=== PATIENT | male | born 1995 | race Caucasian/White ===

== ENCOUNTER 2017-12-01 13:10 | Emergency (ER) | payer BC ==
[2017-12-01] MEDS ORDERED: Lidocaine 1% 20 ML MDV ONE (13:32)
[2017-12-01] MEDS ORDERED: Diphtheria,Pertussis(Acell),Tetanus Vaccine 0.5 ML SDV IM ONE (13:43)
[2017-12-01] MEDS ORDERED: Lidocaine 1% 10 ML MDV INJECT ONE (13:43)
--- NOTE | 2017-12-01 13:55 | EDM.PDOC ---
ED HPI GENERAL MEDICAL PROBLEM - General Chief Complaint: Upper Extremity Injury/Pain Stated Complaint: LEFT THUMB INJURY Time Seen by Provider: 12/01/17 13:30 Source of Information: Reports: Patient History Limitations: Reports: No Limitations - History of Present Illness INITIAL COMMENTS - FREE TEXT/NARRATIVE: 22 YO WM presents to ER with foreign body in left thumb. Pt reports he was sliding his hand across a railing when he felt a piece of wood go into his thumb. Pt reports it was a large splinter. Pt states injury occurred approximately 3 hours ago. Pt denies any other injury. Pt reports last tetanus was 10 years ago. Onset: Today Duration: Hour(s): (3) Location: Reports: Upper Extremity, Left Quality: Reports: Ache Severity: Mild Improves with: Reports: None Worsens with: Reports: None Associated Symptoms: Reports: No Other Symptoms Left 1-Thumb Pain Score (Numeric/FACES): 2 - Related Data Allergies Allergy/AdvReac Type Severity Reaction Status Date / Time Sulfa (Sulfonamide Allergy Cannot Verified 12/01/17 13:18 Antibiotics) Remember Home Meds: Home Meds Amoxicillin/Potassium Clav [Augmentin 875-125 Tablet] 1 each PO BID #20 tablet 12/01/17 [Rx] Past Medical History - Past Surgical History GI Surgical History: Reports: Appendectomy Social & Family History - Tobacco Use Smoking Status *Q: Never Smoker - Alcohol Use Days Per Week of Alcohol Use: 1 Number of Drinks Per Day: 2 Total Drinks Per Week: 2 - Recreational Drug Use Recreational Drug Use: No Review of Systems - Review of Systems Review Of Systems: See Below Constitutional: Reports: No Symptoms Eyes: Reports: No Symptoms Ears: Reports: No Symptoms Nose: Reports: No Symptoms Mouth/Throat: Reports: No Symptoms Respiratory: Reports: No Symptoms Cardiovascular: Reports: No Symptoms GI/Abdominal: Reports: No Symptoms Genitourinary: Reports: No Symptoms Musculoskeletal: Reports: No Symptoms Skin: Reports: Other (foreign body in left thumb) Neurological: Reports: No Symptoms Psychiatric: Reports: No Symptoms ED EXAM, GENERAL - Physical Exam Exam: See Below Exam Limited By: No Limitations General Appearance: Alert, WD/WN, No Apparent Distress Head: Atraumatic, Normocephalic Neck: Normal Inspection, Supple, Non-Tender, Full Range of Motion Respiratory/Chest: No Respiratory Distress, Lungs Clear, Normal Breath Sounds, No Accessory Muscle Use, Chest Non-Tender Cardiovascular: Normal Peripheral Pulses, Regular Rate, Rhythm, No Edema, No Gallop, No JVD, No Murmur, No Rub GI/Abdominal: Normal Bowel Sounds, Soft, Non-Tender, No Organomegaly, No Distention, No Abnormal Bruit, No Mass Back Exam: Normal Inspection, Full Range of Motion, NT Extremities: Other (foreign body in left thumb) Neurological: Alert, Oriented, CN II-XII Intact, Normal Cognition, Normal Gait, Normal Reflexes, No Motor/Sensory Deficits Psychiatric: Normal Affect, Normal Mood Skin Exam: Warm, Dry, Intact, Normal Color, No Rash Lymphatic: No Adenopathy ED TRAUMA EXTREMITY PROCEDURES - Foreign Body Removal Indication:: large splinter in left thumb Consent Obtained: Patient Performing Doctor:: Ovidio Montes Anesthesia Type: Local Findings:: small incision with #10 blade and use of hemostats for complete removal of large splinter. No complications Complications:: No Course - Vital Signs Last Recorded V/S: Last Vital Signs Temp 36.7 C 12/01/17 13:20 Pulse 92 12/01/17 13:20 Resp 18 12/01/17 13:20 BP 149/82 H 12/01/17 13:20 Pulse Ox 99 12/01/17 13:20 - Orders/Labs/Meds Orders: Active Orders 24 hr Category Date Time Status Vaccines to be Administered [RC] PER UNIT ROUTINE Care 12/01/17 13:44 Active Meds: Medications Discontinued Medications Generic Name Dose Route Start Last Admin Trade Name Freq PRN Reason Stop Dose Admin Diphtheria/Tetanus/Acell Pertussis 0.5 ml 12/01/17 13:43 12/01/17 13:45 Adacel IM 12/01/17 13:44 0.5 ml .ONCE ONE Administration Lidocaine HCl Confirm 12/01/17 13:32 Xylocaine 1% Administered 12/01/17 13:33 Dose 20 ml .ROUTE .STK-MED ONE Lidocaine HCl 10 ml 12/01/17 13:43 12/01/17 13:47 Xylocaine 1% INJECT 12/01/17 13:44 2 ml ONETIME ONE Administration Departure - Departure Time of Disposition: 13:56 Disposition: Home, Self-Care 01 Condition: Good Clinical Impression: Foreign body (FB) in soft tissue - Discharge Information Prescriptions: Amoxicillin/Potassium Clav [Augmentin 825-125 Tablet] 1 each PO BID #20 tablet Instructions: Sliver Removal, Care After Referrals: PCP,Unknown [Primary Care Provider] - - My Orders Last 24 Hours: My Active Orders 12/01/17 13:44 Vaccines to be Administered [RC] PER UNIT ROUTINE - Assessment/Plan Last 24 Hours: My Active Orders 12/01/17 13:44 Vaccines to be Administered [RC] PER UNIT ROUTINE Assessment:: 1. foreign body removal from left thumb Plan: 1. wound care instructions 2. Augmentin 875mg PO BID x 10 days 3. tetanus given 4. discharge home 5. return for worsening symptoms
== END 2017-12-01 14:04 | disposition home or self-care (01) ==
LOC: KA.ED 13:10
DX: S60.351A Superficial foreign body of right thumb, initial encounter (principal); Z23 Encounter for immunization; Z88.2 Allergy status to sulfonamides; Z90.49 Acquired absence of other specified parts of digestive tract; W45.8XXA Other foreign body or object entering through skin, initial encounter
CPT/HCPCS: 10120; 90471; 90715; 99283; A9270-GY

== ENCOUNTER 2018-03-22 19:11 | Emergency (ER) | payer BC ==
[2018-03-22] MEDS ORDERED: Cephalexin 250 MG Cap ONE (19:44)
--- NOTE | 2018-03-22 19:44 | EDM.PDOC ---
ED HPI GENERAL MEDICAL PROBLEM - General Chief Complaint: Bite:Animal, Insect Stated Complaint: INFECTED BUG BITE Time Seen by Provider: 03/22/18 19:20 Source of Information: Reports: Patient History Limitations: Reports: No Limitations - History of Present Illness INITIAL COMMENTS - FREE TEXT/NARRATIVE: 22 YO WM presents to ER complaining of left ankle redness with pain and swelling x 1 day. Pt reports he thinks it started after a bug bite to the same area. Pt denies any fever/chills, no nausea/vomiting, no history of gout or injury. Onset Date: 03/21/18 Duration: Day(s): (2) Location: Reports: Lower Extremity, Left Quality: Reports: Ache Severity: Mild Improves with: Reports: None Worsens with: Reports: None Associated Symptoms: Reports: No Other Symptoms. 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 - Related Data Allergies Allergy/AdvReac Type Severity Reaction Status Date / Time Sulfa (Sulfonamide Allergy Cannot Verified 03/22/18 19:20 Antibiotics) Remember Home Meds: Home Meds Cephalexin [Keflex] 500 mg PO Q6H #40 capsule 03/22/18 [Rx] Past Medical History - Past Surgical History GI Surgical History: Reports: Appendectomy Social & Family History - Tobacco Use Smoking Status *Q: Never Smoker Second Hand Smoke Exposure: No - Caffeine Use Caffeine Use: Reports: Coffee, Soda - Recreational Drug Use Recreational Drug Use: No ED ROS GENERAL - Review of Systems Review Of Systems: See Below Constitutional: Reports: No Symptoms HEENT: Reports: No Symptoms Respiratory: Reports: No Symptoms Cardiovascular: Reports: No Symptoms Endocrine: Reports: No Symptoms GI/Abdominal: Reports: No Symptoms : Reports: No Symptoms Musculoskeletal: Reports: No Symptoms Skin: Reports: Erythema Neurological: Reports: No Symptoms Psychiatric: Reports: No Symptoms Hematologic/Lymphatic: Reports: No Symptoms Immunologic: Reports: No Symptoms ED EXAM, ANIMAL BITE - Physical Exam Exam: See Below Exam Limited By: No Limitations General Appearance: Alert, WD/WN, No Apparent Distress Head: Atraumatic, Normocephalic Neck: Normal Inspection, Supple, Non-Tender, Full Range of Motion Respiratory/Chest: No Respiratory Distress, Lungs Clear, Normal Breath Sounds, No Accessory Muscle Use, Chest Non-Tender Cardiovascular: Normal Peripheral Pulses, Regular Rate, Rhythm, No Edema, No Gallop, No JVD, No Murmur, No Rub GI/Abdominal: Normal Bowel Sounds, Soft, Non-Tender, No Organomegaly, No Distention, No Abnormal Bruit, No Mass Back Exam: Normal Inspection, Full Range of Motion, NT Extremities: Normal Range of Motion, Non-Tender, Normal Capillary Refill, Increased Warmth, Redness. No: Joint Swelling, Limited Range of Motion Neurological: Alert, Oriented, CN II-XII Intact, Normal Cognition, Normal Gait, Normal Reflexes, No Motor/Sensory Deficits Psychiatric: Normal Affect, Normal Mood Lymphatic: No Adenopathy Course - Vital Signs Last Recorded V/S: Last Vital Signs Temp 36.8 C 03/22/18 19:21 Pulse 80 03/22/18 19:21 Resp 20 03/22/18 19:21 BP 126/79 03/22/18 19:21 Pulse Ox 99 03/22/18 19:21 Departure - Departure Time of Disposition: 19:51 Disposition: Home, Self-Care 01 Condition: Good Clinical Impression: Cellulitis Qualifiers: Site of cellulitis: extremity Site of cellulitis of extremity: lower extremity Laterality: left Qualified Code(s): L03.116 - Cellulitis of left lower limb - Discharge Information Prescriptions: Cephalexin [Keflex] 500 mg PO Q6H #40 capsule Instructions: Cellulitis, Adult, [id number] Referrals: Michaela Watts MD [Primary Care Provider] - - Assessment/Plan Assessment:: 1. early cellulitis of left ankle Plan: 1. discharge home 2. keflex 500mg PO Q6 x 10 days 3. follow up in clinic in 2 days for recheck 4. return to ER for worsening symptoms
[2018-03-22] MEDS: Cephalexin 250 MG Cap PO SCH (19:49)
== END 2018-03-22 20:00 | disposition home or self-care (01) ==
LOC: KA.ED 19:11
DX: L03.116 Cellulitis of left lower limb (principal); Z88.2 Allergy status to sulfonamides
CPT/HCPCS: 99283; A9270-GY